=== PATIENT | male | born 1995 | race Two or more races ===

== ENCOUNTER 2020-04-14 09:00 | Outpatient (CLI) | payer OTHER | END 2020-04-14 15:00 | disposition home or self-care (01) | LOC: PPH VACUNA 09:00 | DX: Z23 Encounter for immunization (principal) ==

== ENCOUNTER 2020-07-22 17:41 | Emergency (ER) | payer OTHER ==
[~2020-07-22] VITALS: Ht 180.3 cm; Wt 63.5 kg
[2020-07-23] MEDS ORDERED: ZITHROMAX500 MG PO (03:10)
== END 2020-07-23 03:26 | disposition home or self-care (01) ==
LOC: ER 17:41
DX: R50.9 Fever, unspecified (principal); E86.0 Dehydration; Z20.828 Contact with and (suspected) exposure to other viral communicable diseases

== ENCOUNTER → 2020-11-10 | Emergency (ER) | payer OTHER ==
[~2020-11-10] VITALS: Ht 180.3 cm; Wt 63.5 kg
[~2020-11-10] MED LIST: ACETAMINOPHEN500 M1; ZITHROMAX500 MG PO
== END | disposition home or self-care (01) ==
LOC: ER 14:53
DX: H57.11 Ocular pain, right eye (principal)